=== PATIENT | female | born 1990 | race Caucasian/White ===

== ENCOUNTER → 2020-09-23 11:36 | Outpatient (CLI) | payer BC, SELFPAY ==
--- NOTE | ~2020-09-23 | XR_ITS ---
EXAMINATION: XR chest 2V DATE: 09/23/2020 11:55 INDICATION: Smoker with productive cough TECHNIQUE: PA and lateral views of the chest were obtained. COMPARISON: Chest radiograph dated 03/22/19 FINDINGS: The lungs remain clear with no focal airspace opacities, pulmonary edema, pleural effusion or pneumot horax. The cardiomediastinal silhouette is normal. Old healed left clavicle fracture. Cholecystectomy clips in right upper quadrant. IMPRESSION: 1. No acute cardiopulmonary disease. Reviewed, dictated and finalized at location B.
== END ==
LOC: EXPCRAD 11:38
PROVIDERS: PCP Family Medicine; Visit Provider Family Medicine
DX: R05 Cough (principal)
CPT/HCPCS: 71046

== ENCOUNTER 2023-01-25 10:02 | Outpatient (CLI) | payer BC, SELFPAY ==
--- NOTE | ~2023-01-25 | US_ITS ---
EXAMINATION: US retroperitoneal comp DATE: 01/25/2023 10:39 INDICATION: LEFT URETERAL STONE TECHNIQUE: Multiple grayscale and Doppler ultrasound images of the kidneys were obtained. COMPARISON: None. FINDINGS: The right kidney measures 10.4 x 4.1 x 5.9 cm. The left kidney measures 10.3 x 5.8 x 4.6 cm. The kidn eys demonstrate normal parenchymal echogenicity. There is no hydronephrosis. The bladder is partially decompressed and therefore not well evaluated. IMPRESSION: Limited evaluation of the urinary bladder, otherwise unremarkable renal sonogram findings. No uretera l stone detected. No hydronephrosis. Reviewed, dictated and finalized at location K. IMPRESSION: Limited evaluation of the urinary bladder, otherwise unremarkable renal sonogra m findings. No ureteral stone detected. No hydronephrosis.
== END 2023-01-25 10:03 ==
PROVIDERS: PCP Urology; Visit Provider Urology
DX: N20.1 Calculus of ureter (principal)
CPT/HCPCS: 76770

== ENCOUNTER 2023-05-01 15:27 | Outpatient (CLI) | payer BC, SELFPAY ==
--- NOTE | ~2023-05-01 | CT_ITS ---
EXAMINATION: CT sinus wo con DATE: 05/01/2023 15:41 INDICATION: Chronic sinusitis TECHNIQUE: Computed tomography (CT) of the paranasal sinuses was performed without intravenous contra st. The dose-length product was 357.82 mGy-cm. Automated exposure control and iterative reconstructio n technique were employed. COMPARISON: None FINDINGS: There is a mucous retention cyst of the left maxillary sinus. No significant mucosal thicke adriano. No air-fluid levels. No mucoperiosteal reaction. Mild rightward nasal septal deviation. Ostiome atal units are patent. Mastoids are pneumatized. IMPRESSION: 1. Small mucous retention cyst left maxillary sinus. Reviewed, dictated and finalized at location B.
== END 2023-05-01 15:28 ==
LOC: GOSHIMG 15:28
PROVIDERS: PCP Otolaryngology; Visit Provider Otolaryngology
DX: J32.9 Chronic sinusitis, unspecified (principal)
CPT/HCPCS: 70486

== ENCOUNTER 2023-11-08 12:38 | Outpatient (CLI) | payer BC, SELFPAY | END 2023-11-08 12:39 | disposition home or self-care (01) | LOC: ANHAUDIO 12:39 | PROVIDERS: PCP Family Medicine; Visit Provider Otolaryngology | DX: H93.13 Tinnitus, bilateral (principal); H91.93 Unspecified hearing loss, bilateral | CPT/HCPCS: 92557; 92567 ==

== ENCOUNTER 2023-11-28 07:19 | Outpatient (CLI) | payer BC, SELFPAY ==
--- NOTE | ~2023-11-28 | MR_ITS ---
MRI of the brain Clinical History: Gait abnormality Technique: Axial and sagittal T1-weighted images were acquired. These were followed by axial T2-weigh lucrecia, diffusion weighted, gradient, and FLAIR images. Following intravenous administration of 17 cc M ultiHance gadolinium, T1-weighted fat-sat imaging was performed in the axial and coronal planes. Findings: There is no abnormal signal in brain parenchyma. No acute infarct, internal hemorrhage, or mass lesion identified. Ventricles and subarachnoid spaces are unremarkable. Orbits are unremarkable. Paranasal sinuses and m astoid air cells are clear. Major intracranial flow voids are intact. Sagittal midline structures are intact. No abnormal postcontrast enhancement identified. IMPRESSION: Normal exam. Reviewed, dictated and finalized at location . IMPRESSION: Normal exam.
== END 2023-11-28 07:20 | disposition home or self-care (01) ==
PROVIDERS: PCP Family Medicine; Visit Provider Otolaryngology
DX: R26.89 Other abnormalities of gait and mobility (principal); R42 Dizziness and giddiness; G43.809 Other migraine, not intractable, without status migrainosus
CPT/HCPCS: 70553; A9577

== ENCOUNTER 2023-11-29 15:10 | Outpatient (CLI) | payer BC, SELFPAY ==
[2023-11-29 19:18] LABS: Thyroid Stimulating Hormone 0.297 uIU/mL (0.465-4.680)
[2023-11-30 14:33] LABS: FSH 2.6 mIU/mL; Progesterone 8.2 ng/mL
[2023-12-06 21:29] LABS: Estradiol, Ultrasensitive 52 pg/mL
== END 2023-11-29 15:11 | disposition home or self-care (01) ==
LOC: ANHGOSHLAB 15:11
PROVIDERS: PCP Family Medicine; Visit Provider Obstetrics & Gynecology
DX: R45.86 Emotional lability (principal); G47.00 Insomnia, unspecified; R23.2 Flushing
CPT/HCPCS: 36415; 82670; 83001; 84144; 84443